=== PATIENT | female | born 1970 | race Caucasian/White ===

== ENCOUNTER 2019-06-18 23:02 | Inpatient (IN) | payer SELFPAY ==
[~2019-06-18] VITALS: Ht 165.1 cm; Wt 67.5 kg
[2019-06-18 23:36] LABS: HEMATOCRIT 45.6 % (36.0-47.0); HEMOGLOBIN 15.1 g/dl (12.0-15.5); MEAN CORPUSCULAR HGB CONC 33.1 g/dl (32.0-36.5); MEAN CORPUSCULAR VOLUME 90.5 fl (80.0-96.0); PLATELET COUNT, AUTOMATED 325 10^3/uL (150-450); RED BLOOD COUNT 5.04 10^6/uL (4.00-5.40); WHITE BLOOD COUNT 13.4 10^3/uL (4.0-10.0)
[2019-06-18 23:55] LABS: HCG, SERUM QUALITATIVE NEGATIVE (NEGATIVE)
[2019-06-19 00:01] LABS: BASOPHILS 1 % (0-4); EOSINOPHILS 1 % (0-5); LYMPHOCYTES 31 % (16-52); MONOCYTES 7 % (0-8); NEUTROPHILS 59 % (35-75)
[2019-06-19 00:02] LABS: PLATELET ESTIMATE NORMAL (NORMAL)
[2019-06-19 00:13] LABS: ACETAMINOPHEN LEVEL < 2.0 UG/ML (10.0-30.0); ALBUMIN 4.7 GM/DL (3.2-5.2); ALT/SGPT 49 U/L (12-78); BILIRUBIN,DIRECT 0.2 MG/DL (0.0-0.2); BILIRUBIN,TOTAL 0.7 MG/DL (0.2-1.0); BLOOD UREA NITROGEN 15 MG/DL (7-18); CALCIUM LEVEL 9.2 MG/DL (8.5-10.1); CARBON DIOXIDE LEVEL 22 MEQ/L (21-32); CHLORIDE LEVEL 105 MEQ/L (98-107); CPK CREATINE PHOSPHOKINASE 138 U/L (26-192); CREATININE FOR GFR 0.86 MG/DL (0.55-1.30); ETHYL ALCOHOL (ETHANOL) 0.335 % (0.000-0.010); GLOMERULAR FILTRATION RATE > 60.0 (>58); GLUCOSE, FASTING 67 MG/DL (70-100); POTASSIUM SERUM 3.7 MEQ/L (3.5-5.1); SALICYLATE LEVEL < 1.7 MG/DL (5.0-30.0); SODIUM LEVEL 142 MEQ/L (136-145); TOTAL PROTEIN 8.7 GM/DL (6.4-8.2)
[2019-06-19] MEDS ORDERED: NS 1,000 ML IV ONE ×2 (01:45)
[2019-06-19 05:32] LABS: AMPHETAMINES LEVEL URINE NEGATIVE (NEGATIVE); BARBITURATES URINE NEGATIVE (NEGATIVE); BENZODIAZEPINES URINE POSITIVE (NEGATIVE); CANNABINOIDS URINE NEGATIVE (NEGATIVE); COCAINE METABOLITE URINE NEGATIVE (NEGATIVE); METHADONE URINE NEGATIVE (NEGATIVE); OPIATES URINE NEGATIVE (NEGATIVE); PHENCYCLIDINE URINE NEGATIVE (NEGATIVE)
[2019-06-19] MEDS ORDERED: LORazepam 2 MG TAB PO PRN (08:30)
[2019-06-19] MEDS ORDERED: LORazepam 1 MG TAB PO STA (08:32)
[2019-06-19] MEDS ORDERED: LITH300C PO (08:35)
[2019-06-19] MEDS ORDERED: BUSP15TA47 PO (08:35)
[2019-06-19] MEDS ORDERED: FOLIC ACID 1 MG TAB PO SCH (09:00)
[2019-06-19] MEDS ORDERED: THIAMINE 100 MG TAB PO SCH (09:00)
[2019-06-19] MEDS ORDERED: MULTIVITAMINS/MINERALS THERAP 1 TAB PO SCH (09:00)
[2019-06-19] MEDS ORDERED: HYDR50CA2 PO (11:13)
[2019-06-19] MEDS ORDERED: TRAZ-186 PO (11:13)
[2019-06-19] MEDS ORDERED: MAALOX 30 ML SUSP *UDC PO PRN (13:30)
[2019-06-19] MEDS ORDERED: MOM 30ML SUSPENSION UDC PO PRN (13:30)
[2019-06-19] MEDS ORDERED: NICOTINE 21MG/24HR 1 EA TRANSDERMAL TD PRN (13:30)
[2019-06-19] MEDS ORDERED: ACETAMINOPHEN TAB 650MG DOSE (2X325MG) PO PRN (13:30)
[2019-06-19] MEDS ORDERED: LORazepam 0.5 MG TAB PO ONE (13:45)
[2019-06-19 16:36] VITALS: BP 157/88
[2019-06-19] MEDS: diphenhydrAMINE 50 MG CAP PO PRN (18:55)
--- NOTE | 2019-06-19 19:50 | ECGEPIP ---
[facility] - ED Test Date: 2019-06-18 Pat Name: GIOVANNA DRAPER Department: Room: - Gender: Female Stevedore Hold: TEODORO : 1970 Requested By: EZEQUIEL Ventura Order Number: [id number] Reading MD: Rosa Maria Herron Measurements Intervals [place] Rate: 96 P: 50 IN: 176 QRS: -25 QRSD: 101 T: 48 QT: 375 QTc: 475 Interpretive Statements SINUS RHYTHM W BORDERLINE FIRST DEGREE AV BLOCK BORDERLINE LEFT AXIS DEVIATION NONSPECIFIC ST T WAVE CHANGES DELAYED R WAVE PROGRESSION PROLONGED QTC NO PRIOR ECG FOR COMPARISON Electronically Signed on 06-19-2019 19:50:38 EDT by Rosa Maria Herron
[2019-06-19] MEDS: THIAMINE 100 MG TAB PO SCH (20:25)
[2019-06-19] MEDS: traZODone 50 MG TAB PO PRN (20:25)
[2019-06-20] VITALS (9 sets, daily range): BP systolic 122–160; BP diastolic 81–114
[2019-06-20] MEDS: THIAMINE 100 MG TAB PO SCH ×2 (08:43→20:30)
[2019-06-20] MEDS: FOLIC ACID 1 MG TAB PO SCH (08:43)
[2019-06-20] MEDS ORDERED: MULTIVITAMINS/MINERALS THERAP 1 TAB PO SCH (09:00)
[2019-06-20] MEDS: diphenhydrAMINE 50 MG CAP PO PRN (11:15)
[2019-06-20] MEDS: LORazepam 2 MG TAB PO PRN ×2 (11:22→17:03)
--- NOTE | 2019-06-20 12:56 | MHHPEPDOC ---
General Date Of Admission: Jun 19, 2019 Legal Status: 9.39 Chief Complaint "I relapsed on alcohol." History of Present Illness HISTORY OF THE PRESENT ILLNESS: Patient is a 49 -year-old , female, with a history of PTSD and alcohol use d/o who self-presented to the ED after OD on Xanax to after she had gone on an alcohol binge (wine and whisky) for 5 days due to increased anxiety secondary to life stressors per ED. She has a history of having gone to substance abuse treatment for alcohol use multiple times. She is from [place] and is just here to aid her daughter to move back home to [place]. Psychiatric Review of Systems Depression (2 or more weeks): depressed mood, difficulty concentrating, suicidal thoughts Marysol (4 or more days of): denies Psychosis: denies PTSD: history of trauma, nightmares and flashbacks, mood fluctuations Anxiety: situational anxiety, stressor related anxiety, panic attacks Anxiety/ 6 months or more of: restlessness, keyed up, difficulty concentrating, irritability Past Psychiatric History Previous Psychiatric Diagnosis: Alcohol use d/o, PTSD Previous Psychiatric Admissions: multiple substance abuse treatment inpatient and outpatient in past Suicide Attempts: denies previous Psychiatric Follow-up: Psychiatrist in [place] Psychiatric medications: lithium, buspar, vistaril; vivitrol in the past Past Medical History Medical Problems denies Head Injury: No Seizures: No Hospitalizations: No Surgeries: No Family Medical/Psychiatric HX Medical Problems noncontributory Psychiatric Disorders: No Addiction: No Suicide Attemps/Completions: No Addiction History nicotine (5 day pinge whisky and alcohol; bal 0.335) Social History Childhood: born and raised in [place], 2 parent home, has siblings, good childhood, continues to talk with most family members that continue to live in [place] Abuse/Trauma:kicked by horse as a kid with severe neck injury, lose of many loved ones and 1 daughter Current Living Situation: [place] Education: high school grad Employment: unemployed currently Social Support: family, daughters, AA Legal: denies Marital: , 3 adult daughters; 1 daughter Mental Status Examination General Appearance: well groomed, appears stated age, hospital scubs/clothing Build: average Demeanor: average, very figety Eye Contact: average Activity: average, anxious Behavior: cooperative, restless Speech: clear, spontaneous, normal volume, reg/rate,rhythm,volume Mood: euthymic, anxious, other (tearful when talkin of trauma in past and appropriate sadness only when discussing) Mood anxious Affect: full, appropriate, congruent, anxious Thought Process: logical/linear Thought Content (Delusions): none reported, denies SI, HI, AVH Thought Content (Other): none reported, appropriate Thought Content (Aggressive): none reported Perception (Hallucinations): none reported Perception (Other): none reported Cognition (Impairment of): none reported Cognition(Intelligence Est.): average Oriented: Awake, Alert, Oriented times three Insight: fair Judgment: Fair Psychosis: Denies Diagnoses PTSD Alcohol use d/o - severe Benzodiazepine use d/o A-FIB/CHADSVASC A-FIB History Current/History of A-Fib/PAF?: No Current PO Anticoag Therapy: No Treatment Treatment ordered: NONE Reason Anticoagulant not given: Not indicated/[id number] Assessment Pt seen today and states she's feeling better and denies alcohol withdrawal symptoms currently. She endorsing a lot of anxiety and wondering if her medications are helpful for her that she takes outpatient. Discussed with pt that lithium is a mood stabilizer beneficial to mood mostly either marysol or depression but not anxiety very much and risk/benefit profile of drug would make it more risky for her to take give possible side effects then beneficial for her anxiety. States she's taken zoloft before and found it beneficial and is agreeable to restarting for PTSD (discussed multiple traumas in her past when seen and tearful when talking of loss of daughter). Advised that Buspar and vistaril are both beneficial for anxiety and that buspar with work well with zoloft the boost antianxiety effects of meds. She is agreeable to med plan. Will continue ciwa protocol for risk of alcohol withdrawal. She calls herself a jewoj-[id number]-wjvyq person and gains happiness from her daughters and AA. Recommended trauma therapy in the future that will focus on thoughts feelings of traumas in past to aid coping with them and reduce anxiety which she will do she states. Denies SI/HI, hallucinations, delusions. Feels safe here. Initial Treatment Plan 1. Patient was admitted on a 9.39 status. 2. Complete history was obtained. 3. With patients permission, family will be contacted and database will be expanded. 4. Patients medication regimen will be reviewed and changed accordingly. 5. Patient will be provided with protected environment. 6. Patient will be treated with individual, group, and milieu therapies. 7. Patient will receive supportive psych-education. 8. Discharge planning will commence immediately. 9. Outpatient follow-up treatment will be strongly recommended. 10. The initial treatment plan will focus initially on: * Depression. * Risk for suicide. * Substance abuse. 11. [facility] protocol, d/c lithium, zoloft 50mg daily, vistaril 50mg q6hr prn anxiety, buspar 15mg bid ESTIMATED LENGTH OF STAY: 5-7 DAYS. TIME SPENT COUNSELING AND COORDINATING INITIAL CARE: 60 minutes. Vital Signs Vital Signs Date Time Temp Pulse Resp B/P (MAP) Pulse Ox O2 Delivery O2 Flow Rate FiO2 06/20/19 12:15 86 152/104 (120) 06/20/19 11:22 98.8 18 06/19/19 16:20 98 06/19/19 12:29 Room Air Medications Scheduled Buspirone HCl (Buspirone HCl) 15 Mg Tablet, 15 MG PO BID, (Reported) [place] Carbonate ([place] Carbonate) 300 Mg Capsule, 300 MG PO BID, (Reported) Scheduled PRN Hydroxyzine Pamoate (Hydroxyzine Pamoate) 50 Mg Capsule, 50 MG PO Q6H PRN for ANXIETY, (Reported) Trazodone HCl (Trazodone HCl) 50 Mg Tablet, 50 MG PO QHS PRN for SLEEP, (Reported) Allergies Coded Allergies: No Known Allergies (Unverified , 06/18/19) NEEMA JANE DO Jun 20, 2019 12:56 pm
[2019-06-20] MEDS ORDERED: SERTRALINE HCL 50 MG TAB PO ONE (13:00)
[2019-06-20] MEDS ORDERED: busPIRone 5 MG TAB PO ONE (13:00)
--- NOTE | 2019-06-20 13:50 | HPEPDOC ---
General Date of Admission Jun 19, 2019 at 13:17 Date of Service: Jun 20, 2019 Attending Physician: LINA MENDEZ MD Chief Complaint The patient is a 49-year-old female admitted with a reason for visit of Unspecifed Depressive Disorder. History of Present Illness Alo Cancino is a 49-year-old female, primary medical history significant for alcohol abuse, admitted to inpatient psychiatric unit after taking an unknown amount of Xanax possibly 4-7 with large amounts of wine and whiskey all day. Her reason being due to worsening anxiety with life situations, and also recent relapse. Patient also recently broke up with significant other on account of heavy alcohol abuse. On assessment, she denies chest pain, shortness of breath, weakness, chills, fever, nausea, abdominal pain. Home Medications Scheduled Buspirone HCl (Buspirone HCl) 15 Mg Tablet, 15 MG PO BID, (Reported) [place] Carbonate ([place] Carbonate) 300 Mg Capsule, 300 MG PO BID, (Reported) Scheduled PRN Hydroxyzine Pamoate (Hydroxyzine Pamoate) 50 Mg Capsule, 50 MG PO Q6H PRN for ANXIETY, (Reported) Trazodone HCl (Trazodone HCl) 50 Mg Tablet, 50 MG PO QHS PRN for SLEEP, (Reported) Allergies Coded Allergies: No Known Allergies (Unverified , 06/18/19) Past Medical History Medical History Denies past medical history Surgical History Left foot surgery D&C Family History Mother: Hypertension Social History * Smoker: Denies Alcohol: heavy Drugs: prescription drugs A-FIB/CHADSVASC A-FIB History Current/History of A-Fib/PAF?: No Current PO Anticoag Therapy: No Review of Systems Other systems A pertinent 10 point review of systems is completed, negative except as stated in the history of presenting illness Physical Examination Other physical findings GENERAL: NAD SKIN : Warm, dry intact HEENT: Atraumatic, normocephalic, PERRL, moist mucous membrane CARDIOVASCULAR: Regular rate and rhythm, S1S2, no JVD, no edema, distal pulses + palpable RESP: CTAB, no accessory muscle use noted ABDOMEN: BS+ non distended non tender MS: no joint deformities NEURO: Alert and oriented x 3, CN2-12 grossly intact PSYCH: no anxiety or agitation, appropriate mood and affect. Vital Signs Vital Signs Date Time Temp Pulse Resp B/P (MAP) Pulse Ox O2 Delivery O2 Flow Rate FiO2 06/20/19 12:15 86 152/104 (120) 06/20/19 11:22 98.8 18 06/19/19 16:20 98 06/19/19 12:29 Room Air Assessment/Plan Elevated blood pressure -Without prior diagnosis of hypertension -Start patient on low-dose propranolol -Continue blood pressure monitoring per unit protocol Alcohol abuse -Evaluation and management per primary team -Continue thiamine, folate, multivitamin Polysubstance abuse -Heavy alcohol abuse with benzodiazepines -Counseling, assessment and management per primary team Plan / VTE VTE Prophylaxis Ordered?: No VTE Exclusion Mechanical Proph: Low Risk for VTE WANDA PADILLAP Jun 20, 2019 13:50
[2019-06-20] MEDS: PROPRANOLOL 20 MG TAB PO SCH ×2 (14:05→20:30)
[2019-06-20] MEDS: traZODone 50 MG TAB PO PRN (20:29)
[2019-06-20] MEDS: busPIRone 5 MG TAB PO SCH (20:30)
[2019-06-21 06:37] VITALS: BP 133/78
[2019-06-21] MEDS: MULTIVITAMINS CHILDREN'S CHEWABLE TABLET PO SCH (08:35)
[2019-06-21] MEDS: PROPRANOLOL 20 MG TAB PO SCH ×2 (08:35→20:18)
[2019-06-21] MEDS: SERTRALINE HCL 50 MG TAB PO SCH (08:35)
[2019-06-21] MEDS: FOLIC ACID 1 MG TAB PO SCH (08:35)
[2019-06-21] MEDS: busPIRone 5 MG TAB PO SCH ×2 (08:35→20:17)
[2019-06-21] MEDS: THIAMINE 100 MG TAB PO SCH ×2 (08:35→20:17)
[2019-06-21 08:52] VITALS: BP 136/88
--- NOTE | 2019-06-21 09:39 | IPNPDOC ---
Text Note Date of Service The patient was seen on 06/21/19. NOTE Subjective: Feels much better today, feels less anxious. slept well last night. GENERAL: NAD SKIN : Warm, dry intact HEENT: Atraumatic, normocephalic, PERRL, moist mucous membrane CARDIOVASCULAR: Regular rate and rhythm, S1S2, no JVD, no edema, distal pulses + palpable RESP: CTAB, no accessory muscle use noted ABDOMEN: BS+ non distended non tender MS: no joint deformities NEURO: Alert and oriented x 3, CN2-12 grossly intact PSYCH: no anxiety or agitation, appropriate mood and affect. Assessment/Plan Elevated blood pressure -continue propranolol -Continue blood pressure monitoring per unit protocol -discussed with patient she needs to follow up with PCP for continued monitoring and med adjustment Alcohol abuse -Evaluation and management per primary team -Continue thiamine, folate, multivitamin Polysubstance abuse -Heavy alcohol abuse with benzodiazepines -Counseling, assessment and management per primary team VS,Bethanie, I+O VS, Yahairae, I+O Vital Signs Date Time Temp Pulse Resp B/P (MAP) Pulse Ox O2 Delivery O2 Flow Rate FiO2 06/21/19 08:52 80 136/88 06/21/19 06:37 98.8 12 06/19/19 16:20 98 06/19/19 12:29 Room Air WANDA PADILLA Jun 21, 2019 09:39
--- NOTE | 2019-06-21 11:09 | MHIPNPDOC ---
[facility] Progress Note Progress Note DATE OF SERVICE: 06/21/19 HISTORY: Patient is a 49 -year-old , female, with a history of PTSD and alcohol use d/o who self-presented to the ED after OD on Xanax to after she had gone on an alcohol binge (wine and whisky) for 5 days due to increased anxiety secondary to life stressors per ED. She has a history of having gone to substance abuse treatment for alcohol use multiple times. She is from [place] and is just here to aid her daughter to move back home to [place]. Pt seen today and states she's feeling better and denies alcohol withdrawal symptoms currently. She endorsing a lot of anxiety and wondering if her medications are helpful for her that she takes outpatient. Discussed with pt that lithium is a mood stabilizer beneficial to mood mostly either horace or depression but not anxiety very much and risk/benefit profile of drug would make it more risky for her to take give possible side effects then beneficial for her anxiety. States she's taken zoloft before and found it beneficial and is agreeable to restarting for PTSD (discussed multiple traumas in her past when seen and tearful when talking of loss of daughter). Advised that Buspar and vistaril are both beneficial for anxiety and that buspar with work well with zoloft the boost antianxiety effects of meds. She is agreeable to med plan. Will continue ciwa protocol for risk of alcohol withdrawal. She calls herself a [id number] person and gains happiness from her daughters and AA. Recommended trauma therapy in the future that will focus on thoughts feelings of traumas in past to aid coping with them and reduce anxiety which she will do she states. Denies SI/HI, hallucinations, delusions. Feels safe here. VITAL SIGNS: See below. NEW TEST RESULTS: see below. CURRENT MEDICATIONS: See below. MENTAL STATUS EXAMINATION: General Appearance: well groomed, appears stated age, hospital scrubs/clothing Build: average Demeanor: average, less anxious Eye Contact: average Activity: average, less anxious Behavior: cooperative Speech: clear, spontaneous, normal volume, reg/rate,rhythm,volume Mood: euthymic, less anxious Mood "better" Affect: full, appropriate, congruent, less anxious Thought Process: logical/linear Thought Content (Delusions): none reported, denies SI, HI, AVH Thought Content (Other): none reported, appropriate Thought Content (Aggressive): none reported Perception (Hallucinations): none reported Perception (Other): none reported Cognition (Impairment of): none reported Cognition(Intelligence Est.): average Oriented: Awake, Alert, Oriented times three Insight: fair Judgment: Fair Psychosis: Denies DIAGNOSES: PTSD Alcohol use d/o - severe Benzodiazepine use d/o ASSESSMENT:Pt seen and states that her mood is better and is finding her medications very beneficial, tolerating them well. Denies alcohol withdrawal today and denies she required any ativan since yesterday. Per record has not required ativan for over 24hrs due to lack of alcohol withdrawal symptoms. States she's being social on the milieu which is beneficial. States she slept well last night. Feels she is tolerating her medications and they're beneficial. She is attending groups and finding them helpful. She denies SI/HI, hallucinations, delusions. Looking forward to returning to [place] with her daughter with follow-up outpatient there after d/c. Pt feels safe here. MANAGEMENT PLAN: continue plan. [facility] protocol zoloft 50mg daily vistaril 50mg q6hr prn anxiety buspar 15mg bid TIME SPENT: 30 minutes. Vital Signs Vital Signs Date Time Temp Pulse Resp B/P (MAP) Pulse Ox O2 Delivery O2 Flow Rate FiO2 06/21/19 08:52 80 136/88 06/21/19 06:37 98.8 12 06/19/19 16:20 98 06/19/19 12:29 Room Air Current Medications Current Medications Medications (Trade) Dose Ordered Sig/Terell Route PRN Reason Start Time Stop Time Status Last Admin Dose Admin Acetaminophen (Tylenol Tab) 650 mg Q6HP PRN PO HEADACHE or DISCOMFORT 06/19/19 13:30 Al Hydrox/Mg Hydrox/Simethicone (Mylanta) 30 ml Q4HP PRN PO HEARTBURN/INDIGESTION 06/19/19 13:30 Buspirone HCl (Buspar) 15 mg BID PO 06/20/19 21:00 06/21/19 08:35 Diphenhydramine HCl (Benadryl) 50 mg Q6HP PRN PO ANXIETY/AGITATION 06/19/19 18:30 06/20/19 11:15 Folic Acid (Folic Acid) 1 mg DAILY PO 06/19/19 09:00 8/5/19 13:31 DC 06/19/19 08:43 Folic Acid (Folic Acid) 1 mg DAILY PO 06/20/19 09:00 06/21/19 08:35 Home Med (Med Rec Complete!) ASDIRECTED XX 06/19/19 11:30 06/19/19 11:30 DC Hydroxyzine HCl (Atarax) 50 mg Q6HP PRN PO ANXIETY/AGITATION 06/20/19 13:00 Lorazepam (Ativan) 1 mg STAT STAT PO 06/19/19 08:32 06/19/19 08:34 DC 06/19/19 08:43 Lorazepam (Ativan) 2 mg ASDIRECTED PRN PO SEE PROTOCOL 06/19/19 08:30 06/19/19 13:33 DC Lorazepam (Ativan) 2 mg ASDIRECTED PRN PO SEE PROTOCOL 06/19/19 13:30 06/20/19 17:03 Magnesium Hydroxide (Milk Of Magnesia) 30 ml DAILYPRN PRN PO CONSTIPATION 06/19/19 13:30 Multivitamins (Fruity Chews-Children'S) 1 tab DAILY PO 06/21/19 09:00 06/21/19 08:35 Multivitamins (Theragram-M) 1 tab DAILY PO 06/19/19 09:00 06/19/19 13:31 DC 06/19/19 08:43 Multivitamins (Theragram-M) 1 tab DAILY PO 06/20/19 09:00 06/20/19 14:35 DC 06/20/19 08:43 Nicotine (Nicoderm Cq 21mg) 1 patch DAILYPRN PRN TD smoking cessation 06/19/19 13:30 06/19/19 18:41 DC Propranolol HCl (Inderal) 40 mg BID PO 06/20/19 09:00 06/21/19 08:35 Sertraline HCl (Zoloft) 50 mg DAILY PO 06/21/19 09:00 06/21/19 08:35 Thiamine HCl (Thiamine HCl) 100 mg BID PO 06/19/19 09:00 06/19/19 13:32 DC 06/19/19 08:43 Thiamine HCl (Thiamine HCl) 100 mg BID PO 06/19/19 21:00 06/21/19 21:01 06/21/19 08:35 Trazodone HCl (Desyrel) 50 mg QHSP PRN PO INSOMNIA 06/19/19 13:30 06/20/19 20:29 Allergies Coded Allergies: No Known Allergies (Unverified , 06/18/19) NEEMA JANE DO Jun 21, 2019 09:23 JOE MOJICA OMS-3 Jun 21, 2019 11:09
[2019-06-21 13:26] VITALS: BP 140/92
[2019-06-21] MEDS: hydrOXYzine 50 MG TAB PO PRN (13:28)
[2019-06-21 18:21] VITALS: BP 120/75
[2019-06-21 18:22] VITALS: BP 120/75
[2019-06-21] MEDS: traZODone 50 MG TAB PO PRN (20:17)
[2019-06-22 06:28] VITALS: BP 122/75
[2019-06-22 08:36] VITALS: BP 122/75
[2019-06-22] MEDS: FOLIC ACID 1 MG TAB PO SCH (08:36)
[2019-06-22] MEDS: MULTIVITAMINS CHILDREN'S CHEWABLE TABLET PO SCH (08:36)
[2019-06-22] MEDS: SERTRALINE HCL 50 MG TAB PO SCH (08:36)
[2019-06-22] MEDS: PROPRANOLOL 20 MG TAB PO SCH (08:36)
[2019-06-22] MEDS: busPIRone 5 MG TAB PO SCH (08:36)
[2019-06-22] MEDS ORDERED: SERT-155 PO (09:13)
[2019-06-22] MEDS ORDERED: HYDR50CA2 PO (09:13)
[2019-06-22] MEDS ORDERED: TRAZ-186 PO (09:13)
[2019-06-22] MEDS ORDERED: BUSP15TA47 PO (09:13)
--- NOTE | 2019-06-22 09:14 | MHDSPDOC ---
[facility] Discharge Summary Discharge Summary DATE OF ADMISSION: Jun 19, 2019 at 1:17 pm DATE OF DISCHARGE: Jun 22, 2019 DISCHARGE DIAGNOSES: PTSD Alcohol use d/o - severe Benzodiazepine use d/o REASON FOR ADMISSION: Patient is a 49 -year-old , female, with a history of PTSD and alcohol use d/o who self-presented to the ED after OD on [place] ax to after she had gone on an alcohol binge (wine and whisky) for 5 days due to increased anxiety secondary to life stressors per ED. She has a history of having gone to substance abuse treatment for alcohol use multiple times. She is from [place] and is just here to aid her daughter to move back home to [place]. Pt seen today and states she's feeling better and denies alcohol withdrawal symptoms currently. She endorsing a lot of anxiety and wondering if her medications are helpful for her that she takes outpatient. Discussed with pt that lithium is a mood stabilizer beneficial to mood mostly either horace or de pression but not anxiety very much and risk/benefit profile of drug would make it more risky for her to take give possible side effects then beneficial for her anxiety. States she's taken zoloft before and found it beneficial and is agreeable to restarting for PTSD (discussed multiple traumas in her past when seen and tearful when talking of loss of daughter). Advised that Buspar and vistaril are both beneficial for anxiety and that buspar with work well with zoloft the boost antianxiety effects of meds. She is agreeable to med plan. Will continue ciwa protocol for risk of alcohol withdrawal. She calls herself a [id number] person and gains happiness from her daughters and AA. Recommended trauma therapy in the future that will focus on thoughts feelings of traumas in past to aid coping with them and reduce anxiety which she will do she states. Denies SI/HI, hallucinations, delusions. Feels safe here. CONSULTANTS INVOLVED: none TREATMENT AND PROGRESS ON THE UNIT : Pt was admitted to [facility], seen for psychiatric assessment and started on a ciwa protocol for alcohol withdrawal but didn't require ativan during her stay due to not experiencing withdrawal symptoms. She was started on zoloft 50mg daily for mood. He was provided vistaril 25mg q6hr prn anxiety and trazodone 50mg qhs prn insomnia. Pt found his medications beneficial and tolerated them well. She attended groups daily during her stay. Her symptoms improved with treatment. On day of discharge she denied depression, anxiety, insomnia, SI/HI, hallucinations, delusions, alcohol withdrawal. She was discharged home after family meeting with her daughter with follow-up in [place] for psychiatric and substance abuse treatment and AA.. She felt safe for discharge. DISCHARGE ASSESSMENT: Pt seen and states that her mood is "good" and is finding her medications very beneficial, tolerating them well. She is looking forward to going home to [place] today with her daughter. Denies alcohol withdr awal today and denies she required any ativan since her stay. Per record has not required ativan for over 24hrs due to lack of alcohol withdrawal symptoms. States she's being social on the milieu which is beneficial. States she slept well last night. Feels she is tolerating her medications and they're beneficial. She is attending groups and finding them helpful. She denies dep ression, anxiety, insomnia, SI/HI, hallucinations, delusions, alcohol withdrawal, SI/HI, hallucinations, delusions. Pt feels safe to be discharged home with daughter. MENTAL STATUS EXAMINATION ON DISCHARGE: General Appearance: well groomed, appears stated age, hospital scrubs/clothing Build: average Demeanor: average Eye Contact: average Activity: average Behavior: cooperative Speech: clear, spontaneous, normal volume, reg/rate,rhythm,volume Mood: euthymic Mood "good" Affect: full, appropriate, congruent Thought Process: logical/linear Thought Content (Delusions): none reported, denies SI, HI, AVH Thought Content (Other): none reported, appropriate Thought Content (Aggressive): none reported Perception (Hallucinations): none reported Perception (Other): none reported Cognition (Impairment of): none reported Cognition(Intelligence Est.): average Oriented: Awake, Alert, Oriented times three Insight: good Judgment: good Psychosis: Denies MEDICATIONS ON DISCHARGE: zoloft 50mg daily vistaril 50mg q6hr prn anxiety buspar 15mg bid PLAN/FOLLOWUP ARRANGEMENTS: D/c home with daughter with follow-up in [place] for psychiatric and substance abuse treatment and AA. The amount of time spent in the coordination of care for this patient was approximately 30 minutes. Vital Signs/I&Os Vital Signs Date Time Temp Pulse Resp B/P (MAP) Pulse Ox O2 Delivery O2 Flow Rate FiO2 06/22/19 08:36 53 122/75 06/22/19 06:28 98.5 16 06/19/19 16:20 98 06/19/19 12:29 Room Air Medications Scheduled Buspirone HCl (Buspirone HCl) 15 Mg Tablet, 15 MG PO BID, (Reported) [place] Carbonate ([place] Carbonate) 300 Mg Capsule, 300 MG PO BID, (Reported) Scheduled PRN Hydroxyzine Pamoate (Hydroxyzine Pamoate) 50 Mg Capsule, 50 MG PO Q6H PRN for ANXIETY, (Reported) Trazodone HCl (Trazodone HCl) 50 Mg Tablet, 50 MG PO QHS PRN for SLEEP, (Reported) Allergies Coded Allergies: No Known Allergies (Unverified , 06/18/19) NEEMA JANE DO Jun 22, 2019 9:14 am
[2019-06-22] MEDS: hydrOXYzine 50 MG TAB PO PRN (09:55)
[2019-06-22] MEDS ORDERED: SERT-141 PO (10:17)
[2019-06-22] MEDS ORDERED: TRAZ-252 PO (10:17)
[2019-06-22] MEDS ORDERED: HYDRO50TAB PO (10:17)
[2019-06-22] MEDS ORDERED: BUSP5TA PO (10:17)
== END 2019-06-22 11:57 | disposition home or self-care (01) | DRG 755 ==
LOC: M ED 23:02 → M ED INP 06-19 13:17 → M PSY 06-19 16:30
PROVIDERS: ADMIT Psychiatry & Neurology Addiction Medicine; ATTEND Psychiatry & Neurology Psychiatry
DX: F43.10 Post-traumatic stress disorder, unspecified (principal); F10.20 Alcohol dependence, uncomplicated; F13.10 Sedative, hypnotic or anxiolytic abuse, uncomplicated; T42.4X2A Poisoning by benzodiazepines, intentional self-harm, initial encounter; R03.0 Elevated blood-pressure reading, without diagnosis of hypertension